=== PATIENT | male | born 1975 | race American Indian/Alaskan Native ===

== ENCOUNTER 2022-01-29 20:37 | Emergency (ER) | payer SELFPAY ==
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
[2022-01-30 01:15] VITALS: BP 125/89
== END 2022-01-30 01:16 | disposition home or self-care (01) ==
LOC: ED 20:37
DX: L21.0 Seborrhea capitis (principal); Z98.890 Other specified postprocedural states
CPT/HCPCS: 99282